=== PATIENT | male | born 1950 | race Caucasian/White ===

== ENCOUNTER 2019-05-12 00:06 | Inpatient (IN) | payer MEDICARE, OTHER ==
[~2019-05-12] VITALS: Ht 182.9 cm; Wt 93.9 kg
--- NOTE | ~2019-05-12 | CON ---
[address] [address] CONSULTATION Name: CRISTAL MORTON Room: [address] IN M.R.#: [id number] Admission: 05/12/19 Attend Phys: Ilir Diaz MD Discharge: Date of : 52 Report #: [id number] THIS REPORT FOR: //name// CC: Mell Diaz DATE OF SERVICE: 05/13/2019 CHIEF COMPLAINT: Consultation for paronychia, left great toe. HISTORY OF PRESENT ILLNESS: The patient is a type 2 diabetic with keratoma to the plantar medial hallux and localized paronychia to the proximal nail fold. The inflammation started about 3 days ago and the toe became increasingly red and swollen. He denies injury or change in shoes or activity to precipitate the infection. He is currently on parenteral cefazolin with good tolerance. Aerobic wound culture from the toe is pending. Blood cultures pending. LABORATORY DATA: WBC 17.8, RBC 5.17, hemoglobin 15.2, hematocrit 45.3, platelets 273. ESR 8. BUN 15, creatinine 0.8, glucose 241. PHYSICAL EXAMINATION: Left great toenail is thickened and dystrophic, consistent with onychomycosis. There is inflammation along the proximal nail fold with no expressible drainage. There is a dry callus to the plantar medial hallux, difficult to determine if there is underlying ulceration to the lesion. The foot is warm with palpable dorsalis pedis and posterior tibial pulses bilaterally. Low-grade inflammation to the left foot consistent with resolving cellulitis. No other lesions noted. IMPRESSION: Paronychia, left great toe. PLAN: I do not recommend total toenail avulsion at this point. Continue parenteral antibiotics and monitor. If inflammation persists tomorrow, we will consider a total toenail avulsion. By: [id number] Acuna DPM /anne
[~2019-05-12 00:06] MED LIST: ASPIR-TRIN325 MG PO; BACTRIM DS TAB1 EAC1 PO; CLEOCIN HCL150 MG PO; DILAUDID 2 MG TA2 MG PO; FLONASE 0.05%50 MCG NASAL; GLIPIZIDE 10 MG10 MG PO; IBUPROFEN 800800 M1 PO; LISINOPRIL20 MG PO; METFORMIN HCL500 MG PO; NEURONTIN300 MG PO; PERCOCET 7.5-31 EACH PO; TOUJEO SOL300 UNIT/1 SQ; TOUJEO SOL300 UNIT/1 SUBQ; TRAMADOL 50 MG50 MG PO
[2019-05-12 00:15] VITALS: BP 130/68
[2019-05-12 00:38] LABS: ABSOLUTE BASOPHILS 0.1 thou/uL (0.0-0.2); ABSOLUTE LYMPHOCYTES 1.6 thou/uL (0.8-5.3); ABSOLUTE MONOCYTES 1.6 thou/uL (0.0-1.2); ABSOLUTE NEUTROPHILS 14.4 thou/uL (1.6-8.1); BASOPHILS 0.6 %; EOSINOPHILS 0.2 %; HEMATOCRIT 45.3 % (42.0-52.0); HEMOGLOBIN 15.2 gm/dL (14.0-18.0); LYMPHOCYTES 9.3 %; MCH 29.4 pg (26.0-34.0); MCHC 33.6 g/dL (28.0-37.0); MCV 87.6 fL (80.0-100.0); MPV 6.8 fl. (7.2-11.1); NUCLEATED RBCS 0 /100WBC; PLATELET COUNT* 273 thou/uL (150-400); POLYS 80.9 %; RBC 5.17 mil/uL (4.50-6.00); WBC 17.8 thou/uL (4.0-11.0)
[2019-05-12 00:54] LABS: CALCIUM 8.8 mg/dL (8.5-10.1); CREATININE 0.8 mg/dL (0.6-1.3)
[2019-05-12 00:59] LABS: ALBUMIN 3.5 g/dL (3.4-5.0); TOTAL BILIRUBIN 0.6 mg/dL (<0.1-1.0); TOTAL PROTEIN 6.9 g/dL (6.4-8.2)
[2019-05-12 02:50] VITALS: BP 121/61
[2019-05-12 03:02] VITALS: BP 103/64
--- NOTE | 2019-05-12 04:05 | NUR ---
RECEIVED REPORT FROM DANYELL MOTNES AT APPROX 0330. PT IS AWAKE AND ORIENTED X4. VSS ON ROOM AIR. PT IS MED SURG STATUS. PT DENIES PAIN OF THE MOMENT. RT GREAT TOE WOUND WITH REDNESS UP TO THE DORSAL PORTION OF THE FOOT. PHOTO TAKEN BY DANYELL MONTES. PT ADVISED ON THE USE OF CALL LIGHT AND ORIENTED TO ROOM SET UP. FALL EDUCATION DONE. WILL CONTINUE TO MONITOR PT.
[2019-05-12 08:00] VITALS: BP 99/53
--- NOTE | 2019-05-12 10:14 | NUR ---
Nutrition: Pt admitted with diabetic foot ulcer. Consult for "diabetes." H/o ZUNI, DM, TKA. BG is in 200s, A1c 8.6%, alb 3.5. RD ordered Nacho for wound healing, also restricted diet to CHO controlled for better BG control. On insulin. Wt: 207#, possible mild wt loss over past 2 yrs. GOALS: good po intake, better BG control, good protein intake for wound healing. Consider Mild risk at this time.
--- NOTE | 2019-05-12 11:34 | NUR ---
INITIAL ASSESSMENT: Patient evaluated for d/c planning needs. Reviewed chart and spoke with nurse and pt. Pt is [place]. Pt lives in house with spouse of 7 years. Pt has 40 goats, 35 chickens, 4 turkeys, 4 horses and 60 cows. Pt also has a construction company. Pt was independent with ADL's and used no DME. Pt had [facility] in the past. Pt plans on returning home on d/c from hospital. Will remain available to assist as needed.
--- NOTE | 2019-05-12 11:53 | NUR ---
Pt transferred to room 102 prior to this CM assessing
[2019-05-12 16:30] VITALS: BP 96/47
--- NOTE | 2019-05-12 17:01 | NUR ---
PT A&Ox4. VITALS STABLE. CARB CONTROL DIET. IV PATENT. POSSIBLE I&D TOMORROW. UP AD ARTIS. L GREAT TOE IS RED AND SWOLLEN. PAIN CONTROLLED WITH TRAMADOL. DENIED N/V. CALL LIGHT WITHIN REACH. WILL CONTINUE TO MONITOR.
[2019-05-12 20:30] VITALS: BP 127/68
--- NOTE | 2019-05-12 20:31 | NUR ---
WOUND NURSE: PATIENT SEEN TO ADDRESS AN UNSTAGEABLE DFU ON THE LEFT DISTAL LATERAL GREAT TOE WHICH PRESENT A CLOSED CALLOUSED LESION CONTAINING YELLOWISH NONBLANCHEABLE SKIN AND WHICH IS PAINFUL TO PALPATION AND SLIGHTLY BOGGY. SUSPECT WOUND UNDERNEATH. SUGGESTED PATIENT BE SEEN BY PODIATRY, BUT HE IS DISINTERESTED, STATING HE WANTS TO BE SEEN BY DR. BOUCHER. THIS IS TO BE PASSED ALONG IN REPORT BY THE NIGHT NURSE CARING FOR THE PATIENT TO DISCUSS WITH HOSPITALIST CARING FOR THE BEBETO. NO OPEN WOUND THUS NO RECOMMENDATIONS AT THIS TIME.
--- NOTE | 2019-05-13 05:15 | NUR ---
PT SEEN BY ID AT HS. ORDERS RECEIVED FOR ABX AND OINTMENT TO L GREAT TOE. PT DENIES NEED FOR PAIN MEDS. UP AD ARTIS IN ROOM TO BR TO VOID. HS ACCUCHECK 228, INSULIN GIVEN WITH SNACK. LABS DRAWN. R FA SL IV. VSS, ROOM AIR SAT 96%. AOX4, ABLE TO USE CALL LITE AND MAKE NEEDS KNOWN.
[2019-05-13 07:34] VITALS: BP 120/71
[2019-05-13 12:04] LABS: ABSOLUTE EOSINOPHILS 0.1 thou/uL (0.0-0.7); ABSOLUTE LYMPHOCYTES 1.7 thou/uL (0.8-5.3); ABSOLUTE NEUTROPHILS 7.6 thou/uL (1.6-8.1); BASOPHILS 0.2 %; HEMOGLOBIN 14.7 gm/dL (14.0-18.0); MCH 29.3 pg (26.0-34.0); MCHC 33.5 g/dL (28.0-37.0); MCV 87.6 fL (80.0-100.0); MONOCYTES 9.9 %; MPV 6.6 fl. (7.2-11.1); NUCLEATED RBCS 0 /100WBC; PLATELET COUNT* 257 thou/uL (150-400); POLYS 72.9 %; RBC 5.03 mil/uL (4.50-6.00); RDW-CV 13.3 % (10.5-14.5); WBC 10.5 thou/uL (4.0-11.0)
[2019-05-13 16:30] VITALS: BP 125/77
--- NOTE | 2019-05-13 17:58 | NUR ---
PT A&Ox4. VITALS STABLE. DRESSING CHANGED. MINIMAL PAIN, CONTROLLED WITH TRAMADOL. DENIED NAUSEA/VOMITING. UP AD ARTIS. TOLERATING FOOD. IV PATENT. CALL LIGHT WITHIN REACH. WILL CONTINUE TO MONITOR.
[2019-05-13 20:30] VITALS: BP 135/84
--- NOTE | 2019-05-13 22:53 | CON ---
[address] [address] CONSULTATION Name: CRISTAL OROZCO Room: [address] IN ..#: [id number] Admission: 05/12/19 Attend Phys: Ilir Diaz MD Discharge: Date of : 52 Report #: [id number] THIS REPORT FOR: //name// CC: Mell Diaz DATE OF SERVICE: 05/12/2019 CONSULTATION: Infectious diseases. HISTORY OF PRESENT ILLNESS: Fran Orozco is a 68-year-old white male admitted to [facility] on 05/12 because of infection in his foot. The patient has a history of diabetes. For the last 2 days, he noted his great toe on the left foot was red, warm and swollen. He presented to the clinic who thought he might need surgical evaluation and treatment. He was admitted to the hospital and Infectious Disease consultation was requested. The patient has no history of trauma. He does not use special footwear. 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 PAST MEDICAL HISTORY: Significant for diabetes mellitus and a past history of a closed head injury. PAST SURGICAL HISTORY: Includes shoulder replacement, knee replacement, and laminectomy. He has had his tonsils removed. No history of drug allergies. SOCIAL HISTORY: The patient is . He continues to work hard physical job. He does not use tobacco, alcohol or drugs. REVIEW OF SYSTEMS: The patient is not complaining of fevers, chills, sweats, weakness, malaise. The patient denies any head, neck, chest, GI or complaints. He has minimal discomfort in the foot. PHYSICAL EXAMINATION: GENERAL: The patient appears his stated age, alert, oriented, comfortable, not in any distress. VITAL SIGNS: Normal. The patient is afebrile since coming to the hospital. SKIN: Shows no rash, lesion or exanthem except to foot as described below. ENT: Negative. Cognitive function is normal. CARDIOVASCULAR: Heart sounds normal. LUNGS: Clear. ABDOMEN: Belly soft and nontender. EXTREMITIES: Show excellent pulses in both feet. Capillary refill is good. There is a mild amount of onychomycosis. On the left great toe, there is a paronychia just at the base of the nail. The nail bed is somewhat red, [place] [address] CONSULTATION Name: CRISTAL OROZCO Room: [address] IN [facility]#: [id number] Admission: 05/12/19 Attend Phys: Ilir Diaz MD Discharge: Date of : 52 Report #: [id number] has some soft tissue swelling. There is no fluctuance. There is no drainage. There is some erythema, which comes from this area and goes proximal on dorsum of foot. Apparently, this went up to the ankle and even beyond earlier, but this has resolved since coming to the hospital receiving IV vancomycin. On the plantar surface of the great toe, there is a blister, but it is intact without any drainage. LABORATORY DATA: White count is 17.8, hemoglobin 15, hematocrit 45%, and platelet 273,000. Electrolytes, BUN and creatinine are normal. Glucose is 241. Liver function tests are normal. IMPRESSION: Paronychia with secondary cellulitis in a patient with diabetes. This most likely is simple paronychial infection. These are usually Staph or strep, especially group B strep. First generation cephalosporins would be the appropriate medication. I will continue antibiotics with IV cefazolin. If the patient continues to show improvement in the soft tissue changes, we could consider discharging him on Keflex. At this time, I would not recommend opening the soft tissue swelling nor the blister. We can use mupirocin under Xeroform gauze and roll gauze for additional topical antibiotic and to soften the skin so that it may have spontaneously drain if there is fluid trapped. I think it will be worthwhile to look for metabolic parameters associated with diabetic foot wounds including hemoglobin A1c and thyroid level. I appreciate the opportunity of input in the care of this pleasant gentleman. I anticipate he will respond fairly quickly to antibiotics, probably will be able to be discharged on oral Keflex in 1-2 days. Thank you for this consultation. <ELECTRONICALLY SIGNED> By: Byron Lopez MD 05/13/19 [id number] Lopez MD /nt
[2019-05-14 02:10] LABS: GLYCOHEMOGLOBIN (HGB A1C) 10.7 % (4.8-5.6)
[2019-05-14 04:16] LABS: ABSOLUTE EOSINOPHILS 0.1 thou/uL (0.0-0.7); ABSOLUTE LYMPHOCYTES 1.7 thou/uL (0.8-5.3); ABSOLUTE NEUTROPHILS 6.4 thou/uL (1.6-8.1); BASOPHILS 0.3 %; EOSINOPHILS 1.4 %; HEMATOCRIT 44.4 % (42.0-52.0); HEMOGLOBIN 14.9 gm/dL (14.0-18.0); LYMPHOCYTES 18.6 %; MCH 29.4 pg (26.0-34.0); MCHC 33.5 g/dL (28.0-37.0); MCV 87.7 fL (80.0-100.0); MONOCYTES 10.9 %; MPV 6.7 fl. (7.2-11.1); NUCLEATED RBCS 0 /100WBC; PLATELET COUNT* 285 thou/uL (150-400); POLYS 68.8 %; RBC 5.06 mil/uL (4.50-6.00); RDW-CV 13.1 % (10.5-14.5); WBC 9.3 thou/uL (4.0-11.0)
--- NOTE | 2019-05-14 05:10 | NUR ---
PATIENT HAS REMAINED ALERT AND ORIENTED X 4 THROUGHOUT THE SHIFT AND RESTING QUIETLY ON HOURLY ROUNDS. UP INDEPENDENTLY IN ROOM AND MEJIA. SHOWERED HS PRIOR TO LEFT GREAT TOE DRESSING CHANGE. SEEN BY DR. ROMAN INFECTIOUS DISEASE LATE EVENING. IV ANTIBIOTICS PER ORDER. OVERALL IMPROVEMENT IN REDNESS AND SWELLING OF THE TOE/FOOT. VITAL SIGNS STABLE. PLANNED DISCHARGE TODAY WITH ORAL ANTIBIOTICS. CONTINUE TO MONITOR.
[2019-05-14 07:20] VITALS: BP 141/92
[2019-05-14 12:45] VITALS: BP 141/92
[2019-05-14] MEDS ORDERED: KEFLEX500 M1 PO (12:56)
--- NOTE | 2019-05-14 13:35 | NUR ---
ASSUMED CARE OF PATIENT AT APPROX 0730. ALERT AND ORIENTED X4. ASSESSMENT COMPLETED AND CHARTED. VSS ON ROOM AIR. NO COMPLAINTS OF PAIN, NAUSEA OR SOA. PATIENT ANXIOUS ABOUT LEAVING SOON AND I INTRODUCED MYSELF THIS MORNING. WAS WAITING ON A PRESCRIPTION BEFORE HE COULD DISCHARGE. PATIENT APPROACHED THE DESK 3 TIMES WANTING TO LEAVE. PATIENT DID NOT WANT TO WAIT FOR HIS SCRIPT TO BE SIGNED BEFORE HE LEFT AND TOLD STAFF TO JUST CALL IT IN. PATIENT LEFT AT 1330 WITH ALL PERSONAL BELONGINGS AND DISCHARGE INSTRUCTIONS.
--- NOTE | 2019-05-16 15:06 | NUR ---
PATIENT CALLED STATING THAT ANTIBIOTIC PRESCRIPTION HAD NEVER BEEN CALLED INTO PHARMACY ON DAY OF DC. COPY OF PRESCRIPTION FOUND IN MEDICAL RECORD, CLARIFIED WITH DR MIJARES THE ANTIBIOTIC. PRESCRIPTION CALLED INTO [facility] ([phone]) FOR KEFLEX 500MG PO EVERY 6 HOURS, NO REFILLS, #40. PATIENT INFORMED OF THE ABOVE.
== END 2019-05-14 13:30 | disposition home or self-care (01) | DRG 872 ==
LOC: M.ERS 00:06 → M.ORTHSURG 02:25 → M.2W 02:25 → M.TBA-ER 02:25 → M.2W 02:34 → M.ORTHSURG 10:03
PROVIDERS: Emergency Medicine; Internal Medicine; Internal Medicine Infectious Disease; ADMIT Internal Medicine
DX: A41.9 Sepsis, unspecified organism (principal); E11.621 Type 2 diabetes mellitus with foot ulcer; Z96.612 Presence of left artificial shoulder joint; E11.40 Type 2 diabetes mellitus with diabetic neuropathy, unspecified; L03.032 Cellulitis of left toe; Z96.659 Presence of unspecified artificial knee joint; B35.1 Tinea unguium; Z87.828 Personal history of other (healed) physical injury and trauma; Z94.7 Corneal transplant status; Z87.891 Personal history of nicotine dependence; Z83.3 Family history of diabetes mellitus; Z80.0 Family history of malignant neoplasm of digestive organs; Z79.899 Other long term (current) drug therapy

== ENCOUNTER 2019-08-05 19:56 | Emergency (ER) | payer MEDICARE, OTHER ==
[~2019-08-05] VITALS: Ht 182.9 cm; Wt 93.0 kg
[~2019-08-05 19:56] MED LIST changes: +KEFLEX500 M1 PO
[2019-08-05] MEDS ORDERED: TRAMADOL 50 MG50 MG PO (21:50)
[2019-08-05] MEDS ORDERED: IBUPROFEN 800800 M1 PO (21:50)
[2019-08-05 21:58] VITALS: BP 107/72
== END 2019-08-05 21:58 | disposition home or self-care (01) ==
LOC: M.ERS 19:56
DX: S63.8X2A Sprain of other part of left wrist and hand, initial encounter (principal); Z96.652 Presence of left artificial knee joint; Z96.612 Presence of left artificial shoulder joint; W01.0XXA Fall on same level from slipping, tripping and stumbling without subsequent striking against object, initial encounter; Y93.89 Activity, other specified; Y92.89 Other specified places as the place of occurrence of the external cause; Y99.8 Other external cause status

== ENCOUNTER 2019-08-24 18:26 | Emergency (ER) | payer MEDICARE, OTHER ==
[~2019-08-24] VITALS: Ht 185.4 cm; Wt 93.0 kg
[2019-08-24] MEDS ORDERED: LANTUS SOL100 UNIT/1 SUBQ (18:37)
[2019-08-24] MEDS ORDERED: CELEBREX50 MG PO (18:39)
[2019-08-24 19:57] VITALS: BP 160/87
== END 2019-08-24 20:00 | disposition home or self-care (01) ==
LOC: M.ERS 18:26
DX: S01.01XA Laceration without foreign body of scalp, initial encounter (principal); Z79.4 Long term (current) use of insulin; W22.8XXA Striking against or struck by other objects, initial encounter; Y93.89 Activity, other specified; Y92.89 Other specified places as the place of occurrence of the external cause; Y99.8 Other external cause status

== ENCOUNTER 2021-05-18 11:53 | Emergency (ER) | payer MEDICARE, OTHER ==
[~2021-05-18 11:53] MED LIST changes: +CELEBREX50 MG PO; +LANTUS SOL100 UNIT/1 SUBQ
== END 2021-05-18 12:01 | disposition left against medical advice (07) ==
LOC: M.ERS 11:53
DX: Z53.21 Procedure and treatment not carried out due to patient leaving prior to being seen by health care provider (principal)

== ENCOUNTER 2021-05-25 11:05 | Emergency (ER) | payer MEDICARE, OTHER ==
[~2021-05-25] VITALS: Ht 185.4 cm; Wt 99.8 kg
[2021-05-25 13:04] VITALS: BP 112/64
== END 2021-05-25 13:17 | disposition home or self-care (01) ==
LOC: M.ERS 11:05
DX: S01.81XA Laceration without foreign body of other part of head, initial encounter (principal); W22.8XXA Striking against or struck by other objects, initial encounter; Y93.89 Activity, other specified; Y92.89 Other specified places as the place of occurrence of the external cause; Y99.8 Other external cause status